=== PATIENT | male | born 1955 | race African-American/Black ===

== ENCOUNTER 2020-10-19 15:32 | Emergency (ER) | payer OTHER, MEDICAID ==
[~2020-10-19] VITALS: Ht 188 cm; Wt 80.0 kg
[2020-10-20] MEDS ORDERED: LABETALOL HCL 20MG/4ML CARPUJECT IV ONE (02:00)
[2020-10-20] MEDS ORDERED: LABETALOL 5MG/ML SYR 20 MG/4 ML SYRINGE IV NR (02:15)
[2020-10-20 02:48] LABS: BASOPHILS % 0.7 % (0.0-2.0); EOSINOPHILS % 3.3 % (0.0-5.0); HEMATOCRIT. 42.7 % (42.0-52.0); HEMOGLOBIN. 14.1 g/dL (14.0-18.0); LYMPHOCYTES % 17.4 % (20.0-50.0); MEAN CORPUSCULAR HEMOGLOBIN 28.1 pg (28.0-32.0); MEAN CORPUSCULAR VOLUME 85.2 fL (80.0-94.0); MEAN PLATELET VOLUME 8.6 fl (7.4-10.4); NEUTROPHILS % 66.6 % (40.0-76.0); PLATELET 360 x1000/uL (130-400); RED BLOOD CELL COUNT 5.01 mill/uL (4.7-6.1); RED CELL DISTRIBUTION WIDTH 15.5 % (11.6-14.6)
[2020-10-20 02:56] LABS: CHLORIDE 95 mEq/L (98-107)
[2020-10-20 03:01] LABS: ETHANOL BLOOD < 10 mg/dL
[2020-10-20] MEDS ORDERED: FUROSEMIDE 40MG/4ML VIAL IVP ONE (05:15)
[2020-10-20 12:24] VITALS: BP 128/78
== END 2020-10-20 12:40 | disposition short-term general hospital (02) ==
LOC: ER 15:42
DX: R47.81 Slurred speech (principal); I16.0 Hypertensive urgency; I11.0 Hypertensive heart disease with heart failure; I50.9 Heart failure, unspecified; Z59.0 Homelessness
CPT/HCPCS: 36415; 70450; 71045; 80053; 80307; 80320; 80329; 82140; 83690; 83880; 84443; 84484; 85025; 93005; 96374; 96375; 99285; J1940; J3490; G0480

== ENCOUNTER 2022-02-09 18:56 | Emergency (ER) | payer MEDICAID, OTHER ==
[~2022-02-09] VITALS: Ht 182.9 cm; Wt 83.0 kg
[2022-02-09 23:40] LABS: HEMATOCRIT. 31.1 % (42.0-52.0); HEMOGLOBIN. 10.3 g/dL (14.0-18.0); MEAN CORPUSCULAR HEMOGLOBIN 28.8 pg (28.0-32.0); MEAN CORPUSCULAR VOLUME 87.2 fL (80.0-94.0); MEAN PLATELET VOLUME 7.4 fl (7.4-10.4); PLATELET 482 x1000/uL (130-400); RED BLOOD CELL COUNT 3.56 mill/uL (4.7-6.1)
[2022-02-10 00:17] LABS: CHLORIDE 96 mEq/L (98-107)
[2022-02-10] MEDS ORDERED: IBUP-2028 MT (01:16)
[2022-02-10 04:14] VITALS: BP 157/88
[2022-02-10 04:37] LABS: PLATELET ESTIMATE INCREASED
== END 2022-02-10 04:34 | disposition home or self-care (01) ==
LOC: ER 19:26
DX: M79.605 Pain in left leg (principal); M79.604 Pain in right leg; R51.9 Headache, unspecified
CPT/HCPCS: 36415; 73600; 73620; 80053; 85025; 99285